=== PATIENT | male | born 1975 | race Hispanic/Latino ===

== ENCOUNTER 2021-03-15 08:03 | Day surgery (SDC) | payer OTHER ==
[2021-03-12 09:32] LABS: BASOPHILS % (AUTO) 0.5 % (0.0-5.0); EOSINOPHILS % (AUTO) 1.4 % (0.0-8.0); HEMATOCRIT 48.4 % (42-54); LYMPHOCYTES % (AUTO) 31.2 % (21.0-51.0); MEAN CORPUSCULAR HEMOGLOBIN 27.9 pg (27.0-33.0); MEAN CORPUSCULAR HGB CONC 33.3 g/dL (32.0-36.0); MEAN CORPUSCULAR VOLUME 83.9 fL (79-99); MONOCYTES % (AUTO) 9.4 % (3.0-13.0); NEUTROPHILS % (AUTO) 55.5 % (40.0-77.0); PLATELET COUNT (AUTO) 234 K/uL (130-400); RED BLOOD CELL COUNT(AUTO) 5.77 MIL/uL (4.50-6.20); RED CELL DISTRIBUTION WIDTH 13.3 % (11.0-15.5); WHITE BLOOD COUNT (AUTO) 5.5 K/uL (4.8-10.8)
[2021-03-12 09:49] LABS: CREATININE 0.9 mg/dL (0.5-1.5); POTASSIUM 4.6 mmol/L (3.5-5.1)
[2021-03-12 12:12] VITALS: BP 144/99
[~2021-03-15] VITALS: Ht 170.2 cm; Wt 102.9 kg
[2021-03-15] VITALS (17 sets, daily range): BP systolic 108–139; BP diastolic 66–81
[~2021-03-15 08:03] MED LIST: LISI20TA24 PO
[2021-03-15] MEDS ORDERED: CEFAZOLIN SODIUM 1 GM VIAL ONE (09:04)
[2021-03-15] MEDS ORDERED: LACTATED RINGERS 1000ML 1,000 ML IV ONE (09:05)
[2021-03-15] MEDS ORDERED: EPINEPHRINE 1 MG/ML 30ML VIAL IJ ONE (10:10)
[2021-03-15] MEDS ORDERED: SUCCINYLCHOLINE CHLORIDE 20 MG/ML 10 ML VIAL ONE (11:04)
[2021-03-15] MEDS ORDERED: LIDOCAINE PF 100MG/5ML (2%) SYRINGE 5ML ONE ×2 (11:04→14:21)
[2021-03-15] MEDS ORDERED: PROPOFOL 10 MG/ML 20ML VIAL IV ONE (11:08)
[2021-03-15] MEDS ORDERED: ROCURONIUM 10MG/1ML SYR 10 MG/ML ML ONE (11:08)
[2021-03-15] MEDS ORDERED: FENTANYL CITRATE PF 50 MCG/1 ML 2ML VIAL ONE (11:08)
[2021-03-15] MEDS ORDERED: ROPIVACAINE 0.5% 5MG/ML 30ML IJ ONE (11:11)
[2021-03-15] MEDS ORDERED: MIDAZOLAM HCL 1 MG/ML 2ML VIAL ONE (12:19)
[2021-03-15] MEDS ORDERED: GLYCOPYRROLATE 1 MG/5 ML SYRINGE ONE (14:18)
[2021-03-15] MEDS ORDERED: NEOSTIGMINE 5MG/5ML SYR IV ONE (14:18)
[2021-03-15] MEDS ORDERED: KETOROLAC 30MG VIAL (30MG/ML) ONE (14:19)
[2021-03-15] MEDS ORDERED: IBUP-2070 PO (14:36)
[2021-03-15] MEDS ORDERED: HYDR-4060 PO (14:36)
[2021-03-15] MEDS ORDERED: CEPH500B PO (14:36)
== END 2021-03-15 17:00 | disposition home or self-care (01) ==
LOC: DAH 08:03
PROVIDERS: ATTEND Orthopaedic Surgery
DX: M75.122 Complete rotator cuff tear or rupture of left shoulder, not specified as traumatic (principal); Z20.822 Contact with and (suspected) exposure to COVID-19; M19.012 Primary osteoarthritis, left shoulder; M75.42 Impingement syndrome of left shoulder; M65.812 Other synovitis and tenosynovitis, left shoulder; M77.8 Other enthesopathies, not elsewhere classified; I10 Essential (primary) hypertension; K21.9 Gastro-esophageal reflux disease without esophagitis; E78.5 Hyperlipidemia, unspecified; Z79.899 Other long term (current) drug therapy; Z98.890 Other specified postprocedural states; Z90.49 Acquired absence of other specified parts of digestive tract; Z87.891 Personal history of nicotine dependence
CPT/HCPCS: 29824; 29826; 29827; 36415; 64415; 76942; 80048; 85025; 87635; A4215; A4221; A4222; A4223; A4565; A4649 ×4; A4930 ×2; A5120; A6204; C1713 ×2; C9803; G0168; J0171; J0330; J0690; J1885; J2001 ×2; J2250; J2704; J2710; J2795; J3010; J3490; J7030; J7120

== ENCOUNTER 2025-01-01 20:59 | Emergency (ER) | payer OTHER ==
[~2025-01-01] VITALS: Ht 170.2 cm; Wt 113.4 kg
[~2025-01-01 20:59] MED LIST changes: +CEPH500B PO; +HYDR-4060 PO; +IBUP-2070 PO
--- NOTE | 2025-01-01 21:30 | ERN ---
General Chief Complaint: Knee Injury/Swelling Stated Complaint: RIGHT KNEE DISLOCATION Time Seen by MD: 21:13 Source: patient History of Present Illness Initial Comments Patient is a 49-year-old male with medical history of prediabetes and hypertension. He took an awkward turn and felt his right knee dislocate. He states that approximately three months ago he noticed the same thing started to happen when he was getting up from a sitting position and he was able to pop the knee back in, but this time he was not. Patient states no other constitutional symptoms. Timing/Duration: 1 hour Associated Symptoms: denies symptoms Allergies: Coded Allergies: No Known Drug Allergies (Unverified Allergy, Unknown, 03/12/21) Home Meds Active Scripts Hydrocodone/Acetaminophen (Hydrocodon-Acetaminophen 5-325) 1 Each Tablet, 1-2 EACH PO Q6HPRN PRN for acute post-op pain, #56 TAB 0 Refills Prov:RASHEED JACKSON MD 03/15/21 Ibuprofen (Ibuprofen) 600 Mg Tablet, 600 MG PO Q8H PRN for pain, #60 TAB 1 Refill Prov:RASHEED JACKSON MD 03/15/21 Cephalexin Monohydrate (Keflex) 500 Mg Cap, 500 MG PO Q8H for 2 Days, #7 CAP 0 Refills Prov:RASHEED JACKSON MD 03/15/21 Reported Medications Lisinopril (Lisinopril) 20 Mg Tablet, 20 MG PO HS, TAB 03/12/21 Past Medical History Past Medical History: Hypertension Medical History Other: pre-diabetes Past Surgical History: None Constitutional: (-) chills, (-) diaphoresis, (-) fever, (-) malaise, (-) weakness, (-) other documentation EENTM: (-) eye pain, (-) blurred vision, (-) tearing, (-) double vision, (-) ear pain, (-) ear discharge, (-) nose pain, (-) nose congestion, (-) throat pain, (-) Throat swelling, (-) mouth pain, (-) tooth pain, (-) mouth swelling, (-) other documentation Respiratory: (-) cough, (-) orthopnea, (-) short of breath, (-) stridor, (-) wheezing, (-) other documentation Cardiovascular: (-) chest pain, (-) edema, (-) palpitations, (-) syncope, (-) dyspnea on exertion, (-) other documentation Gastrointestinal/Abdominal: (-) nausea, (-) vomiting, (-) diarrhea, (-) abdominal pain, (-) abdominal distention, (-) constipation, (-) rectal bleeding, (-) dark stool/melena, (-) other documentation Genitourinary: (-) penile discharge, (-) dysuria, (-) frequency, (-) hematuria, (-) pain, (-) other documentation Musculoskeletal: (-) Neck pain, (-) back pain, (-) Flank Pain, (-) joint pain, (-) joint swelling, (-) muscle pain, (-) muscle stiffness, (-) gout, (-) other documentation Physical Exam General Appearance: (+) no apparent distress General Appearance comment Patient is sitting in the [facility] with his right knee in flexion in a cardboard and Kerlix immobilization. He does have significant pain, otherwise is calm. Orientation: (+) oriented x 3 Eye: bilateral eye normal inspection, bilateral eye PERRL, bilateral eye EOMI Ear, Nose, Throat: (+) hearing grossly normal, (+) normal ENT inspection Neck: (+) normal inspection, (+) supple Respiratory: (+) chest non-tender, (+) lungs clear Heart: (+) regular, (+) no gallop Vascular: (+) no edema Gastrointestinal: (+) soft, (+) non-tender, (+) bowel sound present Extremities Comment Right knee in flexion with a cardboard Kerlix splint immobilizer. MDM X-rays already ordered of the right knee. I will give the patient a dose of ketorolac. Quick physical exam knee does not appear to be grossly deformed and I will see with the chest x-ray shows patient may have a lateral ligament tear. Patient's plain films are negative for fracture or dislocation. The patient does have a soft tissue weakness possibly a lateral ligament tear meniscal tear it is not clear. I could not examine the patient after 100 mcg of fentanyl. I gave him an additional 100 mcg of fentanyl and 30 mg IV Toradol. The nursing staff was able to put him into a knee brace and crutches and he is able to ambul ate now . I will discharge him home he needs to follow up with a an orthopedic surgeon I will give him five days of Toradol oral. ED Course Orders Procedure Category Date Status Time Knee 3vws Rt RAD 01/01/25 Resulted 21:16 Fentanyl Citrate Pf PHA 01/01/25 Complete 0.05 Mg/Ml (Fentanyl 22:00 Fentanyl Citrate Pf PHA 01/01/25 Complete 0.05 Mg/Ml (Fentanyl 23:30 Ketorolac PHA 01/01/25 Complete Tromethamine 30mg/Ml 23:30 Current Medications Medications (Trade) Dose Ordered Sig/[place] Route PRN Reason Start Time Stop Time Status Last Admin Dose Admin Fentanyl Citrate (FENTanyl CITRate PF 50 MCG/ 1 ML 2ML VIAL) 50 mcg ONCE ONCE IVP 01/01/25 22:00 01/01/25 22:01 DC 01/01/25 22:14 Fentanyl Citrate (FENTanyl CITRate PF 50 MCG/ 1 ML 2ML VIAL) 50 mcg ONCE ONCE IVP 01/01/25 23:30 01/01/25 23:31 DC 01/01/25 23:21 Ketorolac Tromethamine (toRADol) 30 mg ONCE ONCE IVP 01/01/25 23:30 01/01/25 23:31 DC 01/01/25 23:20 Vital Signs Date Time Temp Pulse Resp B/P (MAP) Pulse Ox O2 Delivery O2 Flow Rate FiO2 01/01/25 23:56 98.1 76 18 146/82 97 Room Air* 0 21 01/01/25 22:57 98.1 64 16 143/86 97 Room Air* 0 21 01/01/25 21:34 98.1 70 16 143/86 96 Room Air* 0 21 01/01/25 21:00 98.1 92 16 135/87 97 Room Air 0 DX & DISP Disposition: Discharge Departure Impression: Primary Impression: Ligament tear of lower extremity Condition: Stable Scripts Ketorolac Tromethamine (Toradol) 10 Mg Tab 1 TAB PO Q6HPRN PRN for pain for 5 Days, #20 TAB 0 Refills Prov: LEONELA PALMA MD 01/02/25 Referrals: RASHEED JACKSON MD (PCP) LEONELA PALMA MD Jan 01, 2025 21:30
--- NOTE | 2025-01-01 21:35 | NUR ---
ice pack placed on right knee
--- NOTE | 2025-01-01 22:04 | HMCIMG ---
KNEE 3VWS RT HISTORY: Dislocation COMPARISON: None TECHNIQUE: 3 images of the right knee were obtained. FINDINGS: There is no acute displaced fracture or dislocation. Degenerative changes are seen. The study is limited due to poor positioning. IMPRESSION: 1. Findings as described above.
[2025-01-01] MEDS: FENTanyl CITRate PF 50 MCG/1 ML 2ML VIAL IVP ONE ×2 (22:14→23:21)
[2025-01-01] MEDS: ketOROlac 30MG VIAL (30MG/ML) IVP ONE (23:20)
--- NOTE | 2025-01-01 23:36 | NUR ---
RIGHT KNEE PLACED IN KNEE IMMOBILIZER. CRUTCH TRAINING DONE
[2025-01-01 23:56] VITALS: BP 146/82; PULSE 76; RESP 18; TEMP 98.1; O2SAT 97
[2025-01-02] MEDS ORDERED: KETO10 PO (00:04)
== END 2025-01-02 00:20 | disposition home or self-care (01) ==
LOC: EDH 20:59
DX: S83.8X1A Sprain of other specified parts of right knee, initial encounter (principal); I10 Essential (primary) hypertension; X58.XXXA Exposure to other specified factors, initial encounter; Y93.89 Activity, other specified; Y92.89 Other specified places as the place of occurrence of the external cause; Y99.8 Other external cause status
CPT/HCPCS: 99284; 96374; 29505; 96375; 73562; 96376; J1885; J3010 ×2